=== PATIENT | male | born 1965 | race Caucasian/White ===

== ENCOUNTER 2017-06-09 07:19 | Outpatient (CLI) | payer OTHER | END 2017-06-09 07:20 | disposition home or self-care (01) | LOC: BICULT 07:19 | PROVIDERS: ATTEND Urology | DX: N20.0 Calculus of kidney (principal); C64.9 Malignant neoplasm of unspecified kidney, except renal pelvis; N28.1 Cyst of kidney, acquired; N28.81 Hypertrophy of kidney; Z90.5 Acquired absence of kidney | CPT/HCPCS: 74000; 76770 ==

== ENCOUNTER 2018-06-18 08:58 | Outpatient (CLI) | payer OTHER ==
--- NOTE | 2018-06-18 11:49 | RAD ---
ABDOMEN ONE VIEW: HISTORY: Wilms tumor of left kidney. Calculus of kidney. COMPARISON: None. FINDINGS: No left renal shadow is appreciated. There is a punctate calculus projecting over the right renal in ferior collecting system. There are no dilated loops of large or small bowel. There is a bone island of the right sacrum at S1 . No acute osseous abnormality. There are right upper quadrant surgical clips. IMPRESSION: Findings suggesting a punctate calculus, inferior pole, right kidney. POS: [facility]
--- NOTE | 2018-06-18 12:06 | ULT ---
ABDOMINAL ULTRASOUND: DATE: 06/18/2018: PROVIDED CLINICAL HISTORY: History of Wilms tumor. FINDINGS: Comparison is made with the study dated 06/12/2016. The visualized abdominal aorta, IVC, and pancrea s appear normal. The liver demonstrates a stable echogenic focus within the right hepatic lobe myron tible with hemangioma. The gallbladder is not visualized compatible with the provided clinical histo ry of interval cholecystectomy. The common duct is mildly prominent measuring about 7 mm, likely on the basis of post cholecystectomy status. The right kidney demonstrates no evidence for hydronephros is or solid mass. A subcentimeter simple-appearing right renal cyst. The left kidney is not visuali zed compatible with the provided clinical history of prior left nephrectomy. The spleen is not enlarged and demonstrates no focal abnormality. The urinary bladder appears sonographically unremarkable. IMPRESSION: Interval cholecystectomy. POS: [facility]
== END 2018-06-18 08:59 | disposition home or self-care (01) ==
LOC: BICULT 08:58
PROVIDERS: ATTEND Urology
DX: C64.2 Malignant neoplasm of left kidney, except renal pelvis (principal); N20.0 Calculus of kidney; Z90.49 Acquired absence of other specified parts of digestive tract
CPT/HCPCS: 74018; 76700; 76856

== ENCOUNTER 2019-05-13 07:01 | Emergency (ER) | payer OTHER ==
[2019-05-13] MEDS ORDERED: Morphine 4 MG/ML VIAL ONE (07:44)
--- NOTE | 2019-05-13 07:50 | RAD ---
XR Shoulder Rt 3 View STANDARD: 05/13/2019 7:17 AM CLINICAL INDICATION: Shoulder pain. COMPARISON: CT of the thorax dated 10/14/2003 FINDINGS: Bones: Small 7 mm round calcific density overlies the glenoid. No definite bone island was seen withi n this location comparison CT evaluation. No acute fracture or subluxation demonstrated. Glenohumeral joint: Normal alignment. AC joint: There is mild AC joint osteoarthrosis. Visualized lung: Clear. Soft tissues: Within normal limits. IMPRESSION: No acute fracture or subluxation demonstrated. Small rounded calcific density overlying the anterior inferior glenoid head. No definite bone island was evident on the comparison CT in this location. Findings may reflect calcific deposition within the glenohumeral capsule. If clinically indicated a f ollow-up MRI may be helpful for further characterization.
== END 2019-05-13 08:20 | disposition home or self-care (01) ==
LOC: ERS 07:01
DX: M25.511 Pain in right shoulder (principal); I10 Essential (primary) hypertension; Z79.899 Other long term (current) drug therapy
CPT/HCPCS: 96372; J2270

== ENCOUNTER 2019-07-05 08:40 | Outpatient (CLI) | payer OTHER ==
--- NOTE | 2019-07-05 09:09 | RAD ---
EXAM: XR Abdomen 1 View/KUB PROVIDED CLINICAL HISTORY: Wilms tumor COMPARISON: 06/18/2018 FINDINGS: The abdominal bowel gas pattern is nonspecific. No definite radiographically apparent urinary tract c alculi. The osseous structures demonstrate a stable radiographic appearance. IMPRESSION: No definite radiographically apparent urinary tract calculi.
--- NOTE | 2019-07-05 09:11 | ULT ---
EXAM: US Renal Rt Unilateral PROVIDED CLINICAL HISTORY: History of Wilms tumor COMPARISON: 06/18/2018 Abdominal ultrasound FINDINGS: Right kidney measures about 12.5 x 5.8 x 6.6 cm and demonstrates no evidence for hydronephrosis or so lid mass. Stable simple appearing right renal cyst. No abnormality in the left renal fossa is evident. The urinary bladder appears sonographically unremarkable. A right ureteral jet is documented. IMPRESSION: Stable exam.
== END 2019-07-05 08:41 | disposition home or self-care (01) ==
LOC: BICULT 08:40
PROVIDERS: ATTEND Urology
DX: C64.2 Malignant neoplasm of left kidney, except renal pelvis (principal); N20.0 Calculus of kidney; Z90.5 Acquired absence of kidney
CPT/HCPCS: 74018; 76775

== ENCOUNTER 2019-12-20 09:54 | Outpatient (CLI) | payer OTHER ==
--- NOTE | 2019-12-20 10:18 | RAD ---
Exam: 3 views lumbar spine HISTORY: Sciatica. Lumbago. Pain greatest on the right leg. FINDINGS: Lateral neutral, lateral flexion and lateral extension views demonstrate 5 lumbar type vert ebra. Minimal osteophyte formation at the L1-L2, L3-L4 and L4-L5 levels. No significant loss of disc space height. No abnormal alignment in the neutral position. No abnormal motion upon flexion or extension. No spondylolisthesis or spondylolysis. IMPRESSION: Minimal osteophyte formation.
--- NOTE | 2019-12-20 10:56 | MRI ---
MRI LUMBAR SPINE NONCONTRAST: DATE: 12/20/2019 HISTORY: 54-year-old male with "lumbago with sciatica, other chronic pain" COMPARISON: 02/01/2016 FINDINGS: 5 nonrib-bearing lumbar-type vertebrae. Absence of kidney in the left renal fossa. Vertebral body heights are maintained. No major bone marrow signal abnormality. Hemangiomas of bone, small, at L2, L3, and L4 vertebral bodies. Conus medullaris terminates at lower L1. T12-L1:Normal L1-2:Mild disc space narrowing. Disc desiccation. Mild disc bulge. Minimal retrolisthesis of L1 on L2 . No central or neural foraminal stenosis. L2-3:Previously demonstrated small right paracentral disc protrusion has grown to focal right paracen tral and right lateral small to moderate size disc extrusion, which impinges on right L3 nerve root at lateral aspect of thecal sac. Superior migration of extruded material to junction between foramina l and pedicle level. Mild to moderate right neural foraminal stenosis. Mild left neural foraminal stenosis. The right-sided disc extrusion decreases the cross-sectional area of the thecal sac by appr oximately 15-20%. Overall mild central spinal canal stenosis. Disc height maintained. Diffuse disc bulge. L3-4:Diffuse disc bulge again noted. Mild bilateral facet DJD with mild ligamentum flavum thickening. Mild to moderate central spinal canal stenosis. Posterior epidural fat pad. Moderate thecal sac stenosis. The previously demonstrated central, right paracentral, and right lateral small focal disc extrusion which was effacing the right lateral aspect of the thecal sac, has regressed. There may or may not be minimal residual disc herniation in this location, difficult to distinguish from the ge neralized diffuse disc bulge now. Moderate right and mild to moderate left neural foraminal stenosis. Mild disc space narrowing. L4-5:Moderate disc space narrowing. Vacuum disc phenomenon. Diffuse disc bulge. New superimposed smal l focal central disc protrusion. Mild bilateral facet DJD. Mild to moderate bilateral neural foraminal stenosis. Bilateral lateral recess stenosis. Mild to moderate central spinal canal stenosis . No significant interval change. L5-S1:Moderate disc space narrowing. Vacuum disc phenomenon. Diffuse mild disc bulge. Left lateral an d far lateral broad-based disc bulge or disc-osteophytic bar complex again noted, chronically indenting the caudal surface of the exiting left L5 nerve root, causing moderate left neural foramina l stenosis, unchanged. No central spinal canal stenosis. Mild left facet DJD. Almost normal right facet joint. Mild to moderate right neural foraminal stenosis. No overall interval change at this lev el. IMPRESSION: 1) lumbar spondylosis, with multilevel mild and moderate degenerative disc disease. 2) new since 02/01/2016 at the L2-3 level, there is a right paracentral and right lateral focal disc ex trusion impinging on right L3 nerve root. 3) the previously described right paracentral and right lateral focal disc extrusion at the L3-4 leve l, has regressed.
== END 2019-12-20 09:55 | disposition home or self-care (01) ==
LOC: TBSIIMAG 09:54
PROVIDERS: ATTEND Neurological Surgery
DX: M54.40 Lumbago with sciatica, unspecified side (principal); G89.29 Other chronic pain; M25.78 Osteophyte, vertebrae; M47.816 Spondylosis without myelopathy or radiculopathy, lumbar region; M51.36 Other intervertebral disc degeneration, lumbar region; M51.26 Other intervertebral disc displacement, lumbar region; G58.8 Other specified mononeuropathies
CPT/HCPCS: 72100; 72148

== ENCOUNTER 2020-07-20 09:34 | Outpatient (CLI) | payer OTHER ==
--- NOTE | 2020-07-20 10:05 | CT ---
CT of abdomen and pelvis: 07/20/2020 COMPARISON: 08/23/2012 HISTORY: Prior history of left nephrectomy, evaluate for right-sided renal stone disease TECHNIQUE: Axial CT imaging at 5 mm intervals from lung bases through pubic symphysis without contras t. Coronal reformatted imaging obtained. FINDINGS: Lack of contrast media limits assessment of the viscera, bowel, vascular structures, and fo r lymphadenopathy. Cholecystectomy clips are present. The visualized lung bases appear grossly unremarkable. There is no free intraperitoneal air or fluid appreciated. Limited assessment of the liver, spleen, pancreas, and adrenal glands appears unremarkable. The left kidney is absent. There appears to be asymmetric enlargement of the right seminal vesicle, unchanged when compared to 2012 examination. There is a punctate nonobstructing stone present in the lower pole of the right kidney measuring appr oximately 3 mm. No evidence for obstructive uropathy is appreciated on the right. Limited assessment of the bowel appears unremarkable. The appendix appears normal. There is scattered atherosclerotic calcification of the infrarenal abdominal aorta. There is degenerative change at the lumbosacral junction. No worrisome lytic or blastic bone lesion. There is a sclerotic focus within the S1 vertebral body which measures approximately 1.2 cm in AP dimension, likely on the basis of a stable benign bone island. IMPRESSION: Punctate nonobstructing stone lower pole right kidney. No evidence for obstructive uropat hy. There is post left nephrectomy.
== END 2020-07-20 09:35 | disposition home or self-care (01) ==
LOC: BICCT 09:34
PROVIDERS: ATTEND Urology
DX: C64.2 Malignant neoplasm of left kidney, except renal pelvis (principal); Z90.5 Acquired absence of kidney; N20.0 Calculus of kidney
CPT/HCPCS: 74176

== ENCOUNTER 2020-12-11 18:56 | Emergency (ER) | payer OTHER ==
[2020-12-11 19:21] LABS: Bilirubin Negative (Negative); Blood, Urine Negative (Negative); Clarity Clear (Clear); Glucose, Urine (Dipstick) Normal (Negative); Ketone, Urine Negative (Negative); Leukocyte Negative Leu/uL (Negative); Nitrite Negative (Negative); Protein, Urine (Dipstick) 10 mg/dL (Neg-Trace); Specific Gravity, Urine 1.024 (1.002-1.036); pH, Urine 5.5 (5.0-9.0)
[2020-12-11 19:26] LABS: #Basophils 0.1 thou/uL (0.0-0.2); #Eosinphils 0.3 thou/uL (0.0-0.7); #Lymphocytes 2.1 thou/uL (1.20-3.40); #Monocytes 0.9 thou/uL (0.11-0.59); #Neutrophils 5.6 thou/uL (1.40-6.50); %Basophils 0.9 % (0.0-1.0); %Eosinophils 3.7 % (0.0-10.0); %Lymphocytes 22.9 % (21.0-51.0); %Monocytes 10.3 % (0.0-10.0); %Neutrophils 62.2 % (42.0-75.0); Hemoglobin 16.1 g/dL (14.0-18.0); Mean Corpuscular HGB CONC 32.8 g/dL (32.0-36.0); Mean Corpuscular Volume 94.6 fL (78.0-98.0); Mean Platelet Volume 8.2 fL (7.4-10.4); Platelet Count 280 thou/uL (130-400); RBC Distribution Width 13.3 % (11.5-14.5); Red Blood Cell (RBC) Count 5.18 mill/uL (4.70-6.10)
[2020-12-11 19:53] LABS: ALT (SGPT) 15 U/L (8-55); AST (SGOT) 11 U/L (5-34); Albumin 4.2 g/dL (3.5-5.0); Alkaline Phosphatase 55 U/L (40-110); Anion Gap 12 mmol/L (10-20); BUN (Urea Nitrogen) 15 mg/dL (8.4-25.7); Calc. Creatinine Clearance 0 mL/min (70-130); Calcium 9.6 mg/dL (7.8-10.44); Carbon Dioxide 30 mmol/L (22-29); Chloride 100 mmol/L (98-107); Globulin 3.1 g/dL (2.4-3.5); Glucose 91 mg/dL (70-105); Potassium 3.8 mmol/L (3.5-5.1); Protein, Total 7.3 g/dL (6.0-8.3); Sodium 138 mmol/L (136-145)
== END 2020-12-11 21:04 | disposition home or self-care (01) ==
LOC: ERS 18:56
DX: N20.0 Calculus of kidney (principal); I10 Essential (primary) hypertension
CPT/HCPCS: 36415; 74176; 80053; 81003; 85025

== ENCOUNTER 2021-08-20 09:57 | Outpatient (CLI) | payer OTHER | END 2021-08-20 09:58 | disposition home or self-care (01) | LOC: BICULT 09:57 | PROVIDERS: ATTEND Urology | DX: C64.2 Malignant neoplasm of left kidney, except renal pelvis (principal); N20.0 Calculus of kidney; Z90.5 Acquired absence of kidney | CPT/HCPCS: 76775 ==